=== PATIENT | female | born 1965 | race Caucasian/White ===

== ENCOUNTER → 2017-10-21 | Outpatient (CLI) | payer OTHER | END | disposition home or self-care (01) | LOC: CFH 13:56 | PROVIDERS: ATTEND Nurse Practitioner Family | DX: Z13.820 Encounter for screening for osteoporosis (principal); Z12.31 Encounter for screening mammogram for malignant neoplasm of breast; M85.88 Other specified disorders of bone density and structure, other site | CPT/HCPCS: 77063; 77080; 77067 ==

== ENCOUNTER 2019-03-22 19:18 | Inpatient (IN) | payer OTHER ==
[~2019-03-22] VITALS: Ht 180.3 cm; Wt 83.1 kg
[2019-03-24 13:00] VITALS: BP 111/77
== END 2019-03-24 15:21 | disposition home or self-care (01) | DRG 299 ==
LOC: ED 20:04 → EDIP 20:14 → 3NE 21:40 → DCLOUNGE 03-24 15:01
PROVIDERS: ADMIT Internal Medicine; ATTEND Internal Medicine
DX: I72.3 Aneurysm of iliac artery (principal); I77.72 Dissection of iliac artery; N39.0 Urinary tract infection, site not specified; Z88.2 Allergy status to sulfonamides; Z91.040 Latex allergy status; E06.3 Autoimmune thyroiditis; E78.5 Hyperlipidemia, unspecified; E87.6 Hypokalemia; I10 Essential (primary) hypertension; Z82.49 Family history of ischemic heart disease and other diseases of the circulatory system; Z90.710 Acquired absence of both cervix and uterus; F32.9 Major depressive disorder, single episode, unspecified
CPT/HCPCS: 36415; 87046; 87427; 99285; J3370; 71045; 80053; 81001; 84443; 85025; 85610; 85730; 86850; 86900; 87077; 87086; 87186; 87324; 93005; G0378; J0696; J1885; J7030

== ENCOUNTER → 2019-03-22 | Outpatient (CLI) | payer OTHER ==
[~2019-03-22] MED LIST: CEPH-368 PO; LOSA1TAB19 PO; MELA5TAB19 PO; OMNIPAQUE 350 MG/ML, 100ML BOTTLE ONE; ROSU5TAB PO; THYR90TA PO
[2019-03-22 15:22] LABS: CREATININE 0.95 mg/dL (0.55-1.02)
== END | disposition home or self-care (01) ==
LOC: RAD 14:35
PROVIDERS: ATTEND Family Medicine
DX: I72.3 Aneurysm of iliac artery (principal); Z90.710 Acquired absence of both cervix and uterus
CPT/HCPCS: 36415; 74177; 82565; Q9967

== ENCOUNTER 2019-09-17 10:42 | Outpatient (CLI) | payer OTHER ==
[~2019-09-17 10:42] MED LIST changes: +LOSA1TAB2 PO; +MELA5TAB14 PO; -MELA5TAB19 PO; -OMNIPAQUE 350 MG/ML, 100ML BOTTLE ONE
[2019-09-17] MEDS ORDERED: OMNIPAQUE 350 MG/ML, 100ML BOTTLE ONE (16:13)
== END 2019-09-17 23:59 | disposition home or self-care (01) ==
LOC: CFH 10:42
PROVIDERS: ATTEND Internal Medicine
DX: I72.3 Aneurysm of iliac artery (principal); K76.0 Fatty (change of) liver, not elsewhere classified; M47.816 Spondylosis without myelopathy or radiculopathy, lumbar region
CPT/HCPCS: 74174; 82565; Q9967

== ENCOUNTER 2019-10-22 08:49 | Outpatient (CLI) | payer OTHER | END 2019-10-22 23:59 | disposition home or self-care (01) | LOC: CVU 08:49 | PROVIDERS: ATTEND Internal Medicine | DX: I72.3 Aneurysm of iliac artery (principal); I77.72 Dissection of iliac artery; I10 Essential (primary) hypertension; E03.8 Other specified hypothyroidism; E78.5 Hyperlipidemia, unspecified | CPT/HCPCS: 93306; 93922; 93925 ==

== ENCOUNTER 2020-03-14 12:00 | Emergency (ER) | payer OTHER ==
[~2020-03-14] VITALS: Ht 180.3 cm; Wt 90.0 kg
--- NOTE | 2020-03-14 12:40 | NUR ---
COURIER: PT AMBULATORY TO ROOM FROM LOBBY
[2020-03-14] MEDS ORDERED: IBUPROFEN 200 MG TABLET PO ONE (13:00)
--- NOTE | 2020-03-14 13:12 | NUR ---
PT WITH C/O PAIN ABOVE RT ILLIAC CREST/RT SIDED ABD PAIN SINCE LAST NIGHT, WORSE THIS AM, PT STATES PAIN WORSENS WHEN STANDING AND BENDING FORWARD. PT WITH HX:BILAT ILLIAC ARTERY ANEURYSM, SHE HAS APPOINTMENT NEXT WK FOR F/U TOLD HER TO COME TO ER. PT DENIES CP, SOB, FEVERS, CHILLS, COUGH. ERMD IN TO EVAL PT.
--- NOTE | 2020-03-14 14:42 | NUR ---
PT UP TO BR WITH STEADY GAIT BACK TO [facility] AT THIS TIME, VSS, NAD NOTED
[2020-03-14 14:48] VITALS: BP 135/89
[2020-03-14 15:35] LABS: MICROSCOPIC NOT IND
[2020-03-14] MEDS ORDERED: IBUPROFEN 200 MG TABLET ONE (21:01)
== END 2020-03-14 16:27 | disposition home or self-care (01) ==
LOC: ED 14:31
DX: M25.551 Pain in right hip (principal); R20.0 Anesthesia of skin; I10 Essential (primary) hypertension; E78.5 Hyperlipidemia, unspecified; E03.9 Hypothyroidism, unspecified; Z90.49 Acquired absence of other specified parts of digestive tract; Z90.710 Acquired absence of both cervix and uterus
CPT/HCPCS: 72110; 81003; 99284

== ENCOUNTER → 2020-09-25 | Outpatient (CLI) | payer OTHER ==
[~2020-09-25] MED LIST changes: +OMNIPAQUE 350 MG/ML, 100ML BOTTLE ONE
== END | disposition home or self-care (01) ==
LOC: CFH 08:31
PROVIDERS: ATTEND Internal Medicine
DX: I77.810 Thoracic aortic ectasia (principal); I77.72 Dissection of iliac artery; I72.3 Aneurysm of iliac artery; J84.10 Pulmonary fibrosis, unspecified
CPT/HCPCS: 71275; 74174; 82565; Q9967